=== PATIENT | female | born 1960 | race Caucasian/White ===

== ENCOUNTER 2017-10-16 09:07 | Emergency (ER) | payer OTHER ==
[~2017-10-16] VITALS: Ht 167.6 cm; Wt 101.4 kg
[2017-10-16 09:16] VITALS: Ht 167.6 cm; Wt 101.4 kg
--- NOTE | 2017-10-16 10:56 | ERD ---
ER Documentation Chief Complaint Chief Complaint left arm and breast pain s/p trip and fall today HPI 57-year-old female was brought in by rescue for a trip and fall causing left shoulder, left chest pain. The patient states that it was over an uneven pavement, she fell onto her side. She has aching pain is diffuse going from her left shoulder to her left axilla and left upper chest. It is worse with movement, better at rest and she notices pain when she takes deep breath in or out moves her shoulder. She also states that she hit her knee but she has no pain at this time. She has no difficulty breathing, denies any headaches, loss of consciousness, vomiting, abdominal pain. ROS All systems reviewed and are negative except as per history of present illness. Medications Home Meds Active Scripts Hydrocodone/Acetaminophen ([place] 5-325 Tablet) 1 Each Tablet, 1 TAB PO Q6H Y for PAIN, #15 TAB Prov:FORREST MCDONNELL PA-C 10/16/17 Ibuprofen* (Motrin*) 600 Mg Tab, 600 MG PO Q6, #30 TAB Prov:FORREST MCDONNELL PA-C 10/16/17 Allergies Allergies: Coded Allergies: Sulfa (Sulfonamide Antibiotics) (Unverified Allergy, Intermediate, ) PMhx/Soc History of Surgery: Yes (gallbladder) Anesthesia Reaction: No Hx Neurological Disorder: No Hx Respiratory Disorders: No Hx Cardiac Disorders: No Hx Psychiatric Problems: Yes (anxiety) Hx Miscellaneous Medical Probl: No Hx Alcohol Use: No Hx Substance Use: No Hx Tobacco Use: Yes Smoking Status: Current some day smoker Physical Exam Vitals Vital Signs Date Time Temp Pulse Resp B/P Pulse Ox O2 Delivery O2 Flow Rate FiO2 10/16/17 09:16 97.8 77 18 117/68 96 Physical Exam General: Well-developed, well-nourished. The patient appears in no acute distress. HEENT: Head is normocephalic, atraumatic. No scleral icterus. Neck: Supple. Nontender. Lungs: Clear to auscultation. Normal air movement. Heart: Regular rate and rhythm. S1 and S2 are normal. No murmurs, gallops, or rubs. Abdomen: Soft, nontender, nondistended. Bowel sounds are normoactive. Back: There is no midline tenderness, no CVA tenderness, no abrasions, atraumatic. Extremities: Full range of motion with left shoulder abduction, adduction, she has pain with lifting her shoulder. There are no bony deformities. Small abrasion on the left anterior knee, there is no effusion, no bony deformities, patient has full range of motion flexion extension. Neurologic: Alert and oriented 3. No focal deficits. Skin: Normal turgor. No rash or lesions. Results 24 hrs Current Medications Medications (Trade) Dose Ordered Sig/Won Route PRN Reason Start Time Stop Time Status Last Admin Dose Admin Ibuprofen (Motrin) 600 mg ONCE ONCE PO 10/16/17 11:00 10/16/17 11:01 DC 10/16/17 10:45 Acetaminophen/ Hydrocodone Bitart ([place] (5/325)) 1 tab ONCE ONCE PO 10/16/17 11:00 10/16/17 11:01 DC 10/16/17 10:45 DIAGNOSTIC IMAGING REPORT Patient: JUDY MANCILLA : 1960 Age: 57 Sex: F MR #: [id number] DOS: 10/16/17 1035 Ordering MD: FORREST MCDONNELL PA-C Location: [facility] Room/Bed: PROCEDURE: XR Left Shoulder. CLINICAL INDICATION: Left shoulder pain, fall TECHNIQUE: 3 views of the left shoulder are available for review. COMPARISON: None available FINDINGS: There is no acute fracture. Alignment is normal. There is moderate acromioclavicular osteoarthrosis. Soft tissues are grossly unremarkable. IMPRESSION: 1. No radiographic evidence of acute osseous abnormality. 2. Moderate acromioclavicular osteoarthrosis. RPTAT: UU .Obey Montero MD, MD Date Time Electronically viewed and signed by .Obey Montero MD, MD on 10/16/2017 11: 15 DIAGNOSTIC IMAGING REPORT Patient: JUDY MANCILLA : 1960 Age: 57 Sex: F MR #: [id number] DOS: 10/16/17 0000 Ordering MD: FORREST MCDONNELL PA-C Location: [facility] Room/Bed: PROCEDURE: XR Chest. CLINICAL INDICATION: Status post fall. Pain. TECHNIQUE: Single frontal chest x-ray. COMPARISON: None. FINDINGS: The lungs are clear. No focal opacification is seen. The cardiomediastinal silhouette is unremarkable. The osseous structures are unremarkable. IMPRESSION: 1. There is no acute cardiopulmonary process. RPTAT: PP .Gabriel Hess MD, MD Date Time Electronically viewed and signed by .Gabriel Hess MD, MD on 10/16/2017 11:17 .B/ CC: FORREST MCDONNELL PA-C Procedures/MDM ED COURSE: Had x-rays of her chest as well as her left shoulder performed. She was given ibuprofen and [place] for pain. Patient's left shoulder was placed in a sling. MEDICAL DECISION MAKIN-year-old female comes in with a trip and fall, causing left shoulder pain, chest pain. Patient presents with a chest contusion, shoulder sprain, and any examination is unremarkable. She is ambulatory not complaining of any pain there is a very small abrasion noted. I doubt any fractures, subluxation, dislocation. X-rays are normal. Chest x-ray is unremarkable, I doubt rib fracture, no pneumothorax, hemopneumothorax. X-rays of the left shoulder show no joint narrowing at the AC joint, but no signs of any AC joint separation. The patient was given ibuprofen and [place] for pain at home. Departure Diagnosis: Primary Impression: Fall Additional Impressions: Shoulder sprain Chest wall contusion Abrasion of knee, left Condition: Good FORREST MCDONNELL PA-C Oct 16, 2017 10:56
[2017-10-16] MEDS ORDERED: IBUPROFEN 600 MG TAB PO ONE (11:00)
[2017-10-16] MEDS ORDERED: HYDROCODONE/APAP (5/325) TAB PO ONE (11:00)
--- NOTE | 2017-10-16 11:15 | RADRPT ---
PROCEDURE: XR Left Shoulder. CLINICAL INDICATION: Left shoulder pain, fall TECHNIQUE: 3 views of the left shoulder are available for review. COMPARISON: None available FINDINGS: There is no acute fracture. Alignment is normal. There is moderate acromioclavicular osteoarthrosis. Soft tissues are grossly unremarkable. IMPRESSION: 1. No radiographic evidence of acute osseous abnormality. 2. Moderate acromioclavicular osteoarthrosis. RPTAT: UU .Obey Montero MD, Date Time Electronically viewed and signed by .Obey Montero MD, on 10/16/2017 11:15 .K/
--- NOTE | 2017-10-16 11:17 | RADRPT ---
PROCEDURE: XR Chest. CLINICAL INDICATION: Status post fall. Pain. TECHNIQUE: Single frontal chest x-ray. COMPARISON: None. FINDINGS: The lungs are clear. No focal opacification is seen. The cardiomediastinal silhouette is unremarka ble. The osseous structures are unremarkable. IMPRESSION: 1. There is no acute cardiopulmonary process. RPTAT: PP .Gabriel Hess MD, MD Date Time Electronically viewed and signed by .Gabriel Hess MD, on 10/16/2017 11:17 .B/
[2017-10-16] MEDS ORDERED: IBUP-1542 PO (11:22)
[2017-10-16] MEDS ORDERED: CYCL5TAB PO (11:22)
[2017-10-16] MEDS ORDERED: HYDR-906 PO (11:26)
== END 2017-10-16 12:00 | disposition home or self-care (01) ==
LOC: FTE 09:07
DX: S43.402A Unspecified sprain of left shoulder joint, initial encounter (principal); S20.219A Contusion of unspecified front wall of thorax, initial encounter; S80.212A Abrasion, left knee, initial encounter; F17.210 Nicotine dependence, cigarettes, uncomplicated; W01.0XXA Fall on same level from slipping, tripping and stumbling without subsequent striking against object, initial encounter; Y92.9 Unspecified place or not applicable
CPT/HCPCS: 71010; 73030; Z7502; Z7610